=== PATIENT | female | born 1995 | race Caucasian/White ===

== ENCOUNTER 2020-10-07 11:58 | Emergency (ER) | payer SELFPAY ==
--- NOTE | 2020-10-07 13:11 | PC.NURSE ---
initial attempt to triage was at 1212 with no answer and message was left to call [facility] back. at 1219 did call [facility] back. after telephone triage stated was not in parking lot. boyfriend had drove and had drove back to boyfriends house and would let boyfriend know to drive back.
== END 2020-10-07 13:15 | disposition left against medical advice (07) ==
PROVIDERS: Emergency Provider Nurse Practitioner Family
DX: Z53.21 Procedure and treatment not carried out due to patient leaving prior to being seen by health care provider (principal)
CPT/HCPCS: 99199